=== PATIENT | female | born 1950 | race Caucasian/White ===

== ENCOUNTER 2016-11-26 02:07 | Emergency (ER) | payer MEDICARE ==
[~2016-11-26] VITALS: Ht 167.6 cm; Wt 89.5 kg
[~2016-11-26 02:07] MED LIST: ALPR0.254 PO; CALC1CAP19 PO; CELE200C PO; CHOL200025 PO; CYAN250010 PO; FLUT15.88 NS; GABA-502 PO; INFL100V IV; NAPR220C11 PO; POTA8CAP10 PO; PRAS25CA PO; SERT20OR6 PO; SOMA350 PO
[2016-11-26 02:19] VITALS: BP 125/84; PULSE 74; RESP 16; O2SAT 97
--- NOTE | 2016-11-26 02:28 | ED.REPORT ---
HPI-Abd Pain F Under 40 Date of Service Nov 26, 2016 ED Provider: Norris Moody MD Patient is a 66 year old female with a history of ankylosing spondylitis on Remicade infusions and prior gastric bypass who presents to the ED with diffuse abdominal pain for the past 3 days, worse in severity tonight. She describes the pain as a constant pressure, which waxes and wanes, with sharper stabbing pains. She denies fever, chills, nausea, vomiting, diarrhea, or constipation. The patient was previously told by her GI physician, Dr. Eduardo, that she has gallstones and would need her gallbladder out someday. Patient denies any other abdominal surgeries or a history of diverticulitis. Nursing Notes Stated Complaint: ABDOMINAL PAIN Chief Complaint: Female Abdominal Pain Nursing Notes Reviewed: Yes Allergies: Coded Allergies: Sulfa (Sulfonamide Antibiotics) (Verified Allergy, Intermediate, Nausea, Vomiting, 11/26/16) alendronate sodium (Verified Allergy, Unknown, 11/26/16) oxycodone (Verified Adverse Reaction, Intermediate, UPSET STOMACH, 11/26/16 ) Scheduled Calcium Carb/D3/Mag Aa Chelate (Coral Calcium Capsule) 1 Each Capsule 1 EACH PO DAILY Celecoxib (Celebrex) 200 Mg Capsule 200 MG PO DAILY Cholecalciferol (Vitamin D3) (Vitamin D3) 2,000 Unit Tablet 2,000 UNIT PO DAILY Cyanocobalamin (Vitamin B-12) (Vitamin B12) 2,500 Mcg Tablet 2,500 MCG PO DAILY Gabapentin (Gabapentin) 300 Mg Capsule 300 MG PO BID Infliximab (Remicade) 10 Mg/Ml Sdv 100 MG IV Q8WKS Naproxen Sodium (Aleve) 220 Mg Capsule 220 MG PO DAILY Potassium Chloride (Potassium Chloride) 8 Meq Capsule.er 2 MEQ PO DAILY TAKE WITH FOOD Prasterone (Dhea) (Dhea) 25 Mg Capsule 25 MG PO DAILY Sertraline HCl (Sertraline) 20 Mg/1 Ml Oral.conc 50 MG PO DAILY Scheduled PRN Alprazolam (Alprazolam) 0.25 Mg Tablet 0.25 MG PO TID PRN PRN For Anxiety Carisoprodol (Carisoprodol) 350 Mg Tablet 350 MG PO QID PRN PRN For Restlessness Miscellaneous Medications Fluticasone Propionate (Fluticasone Propionate) 50 Mcg/Actuation [place].susp 15.8 ML NS General Time Seen by MD: 02:26 Chief Complaint Abdominal pain Hx Obtained From: Patient Arrived By: Walk-in Sudden in Onset?: No Onset Occurred: 3 days ago Symptom Duration: Since onset Location: : Diffuse Quality: Cramping, Painful, Stabbing Severity: Current: Moderate Severity: Maximum: Severe Recent Healthcare: No recent doctor visit, No recent hospitalization Similar Sx Previous: No Past Medical History Past Medical History ankylosing spondylitis, Remicade infusions arthritis cholelithiasis Past Surgical History gastric bypass - 20 years ago in [place] left knee surgery Smoking History Former Smoker Social History Other Social History: Good social support, , Local resident Ambulatory Status Independent Review of Systems Constitutional: Denies: Chills, Fever GI: Reports: Abdominal pain, Denies: Constipation, Diarrhea, Nausea, Vomiting Complete sys rev & neg: except as marked. Physical Exam Initial Vital Signs Vital Signs (First) Date Time Temp Pulse Resp B/P Pulse Ox O2 Delivery O2 Flow Rate FiO2 11/26/16 02:19 36.2 74 16 125/84 97 Room Air Initial VS: Reviewed Head / Eyes: Atraumatic, Normocephalic, PERRL ENT: Conjunctiva normal, No scleral icterus Neck: Supple Extremities: Vascular intact, Neuro intact Skin: Warm, Dry, No cyanosis Neurologic: Alert, Oriented, Nonfocal Psychiatric: Mood/affect normal, Behavior normal, Normal thought content General/Constitutional: Awake, Alert Respiratory / Chest: Breath sounds NL, Breath sounds = bilat, No respiratory distress, No rales, No rhonchi, No wheezing Cardiovascular: Heart rate NL, Regular rhythm, Heart sounds NL Abdomen: Soft mild tenderness at the midfield of the abdomen. Back: Atraumatic, Painless range of motion Interpretation & Diagnostics Lab Results Interpretation Result Diagram: 11/26/16 0300 11/26/16 0300 Test 11/26/16 03:00 11/26/16 04:10 White Blood Count 6.7th/mm3 (3.8-10.1) Red Blood Count 4.23mil/mm3 (3.90-5.20) Hemoglobin 12.6g/dL (12.0-15.6) Hematocrit 40.1% (35.0-46.0) Mean Corpuscular Volume 94.8fL (81-100) Mean Corpuscular Hemoglobin 29.8pg (27.0-35.0) Mean Corpuscular Hemoglobin Concent 31.4% (32.0-37.0) Red Cell Distribution Width 12.4% (12.3-15.4) Platelet Count 178bil/L (150-400) Neutrophils (%) (Auto) 54.4% (40-74) Lymphocytes (%) (Auto) 35.0% (14-46) Monocytes (%) (Auto) 8.9% (4-12) Eosinophils (%) (Auto) 1.5% (0-5) Basophils (%) (Auto) 0.1% (0-3) Prothrombin Time 10.9sec (8.1-12.5) Prothromb Time International Ratio 1.02ratio Sodium Level 142mEq/L (134-144) Potassium Level 4.1mEq/L (3.5-5.2) Chloride Level 111mEq/L (97-108) Carbon Dioxide Level 20mmol/L (18-29) Blood Urea Nitrogen 21mg/dL (8-27) Creatinine 1.10mg/dL (0.57-1.00) Estimat Glomerular Filtration Rate 71mL/min (>59) Glucose Level 92mg/dL (60-99) Lactic Acid Level 0.6mmol/L (0.4-2.0) Calcium Level 8.9mg/dL (8.5-10.1) Magnesium Level 2.0mg/dL (1.6-2.6) Total Bilirubin 0.4mg/dL (0.0-1.2) Aspartate Amino Transf (AST/SGOT) 16U/L (0-50) Alanine Aminotransferase (ALT/SGPT) 10U/L (0-32) Alkaline Phosphatase 60U/L (25-165) Total Protein 6.6g/dL (6.4-8.4) Albumin 4.0g/dL (3.4-5.0) Lipase 56U/L (13-60) Urine Color Yellow (YELLOW) Urine Appearance Clear (CLEAR,HAZY) Urine pH 5.5 (5.0-8.0) Urine Specific [place] 1.018 (1.003-1.035) Urine Protein Negativemg/dL (NEG,TRACE) Urine Glucose (UA) Negativemg/dL (NEGATIVE) Urine Ketones Negativemg/dL (NEGATIVE) Urine Occult Blood Negative (NEGATIVE) Urine Nitrite Negative (NEGATIVE) Urine Bilirubin Negative (NEGATIVE) Urine Urobilinogen Normalmg/dL (NORMAL) Urine Leukocyte Esterase Negative (NEGATIVE) Urine RBC 0-2/hpf (0-2) Urine WBC 0-5/hpf (0-5) Urine Epithelial Cells Moderate/hpf (NONE-MOD) Urine Crystals None seen (NONE SEEN) Urine Bacteria None/hpf (NONE-FEW) Urine Hyaline Casts None/lpf (NONE) Urine Granular Casts None seen (NONE SEEN) Urine Waxy Casts None seen (NONE SEEN) Urine Red Blood Cell Casts None seen (NONE SEEN) Urine White Blood Cell Casts None seen (NONE SEEN) Urine Mucus Present (None Seen) Urine Trichomonas None seen (NONE SEEN) Urine Yeast None (NONE SEEN) Urinalysis Comment Urine Culture Reflexed Not indicated ECG Interpretation Time: 04:02 Interpreted by: ED physician Normal ECG Interpretation: Normal ECG w/ rate of... (62), No acute ischemic changes CT Abd / Pelvis Interpretation CONCLUSION: Abnormal position of the cecum with some changes in the vascular pattern of the right lower quadrant and mild on the cecal lumen. A complete volvulus of the cecum is not present. I believe this represents a partial volvulus of the cecum. There is no evidence of obstruction or ischemic bowel. Findings should be correlated with the patient's symptoms. There is generalized dilatation of colon which may represent an element of ileus or constipation. Alternatively, the degress of cecal volvulus may intermittently change, becoming more severe and more symptomatic. Cholelithiasis without evidence of cholecystitis. Radiologist: Dmitri Abebe MD 11/26/2016 - 4:53:10 AM [facility] Interpretation / Wet Read by: Interpret - Radiologist Re-Eval/Medical Decision Med Decision/Clinical Course Med Decision/Clinical Course: 66-year-old presents with waxing and waning abdominal pain, intermittent severe, improved to have a possible sigmoid volvulus resolving at present. She has incidental gallstones. These were none prior. She is referred to surgical service for further evaluation and management, as this likely will require repair to avoid an ischemic episode. She is referred to Dr. Emerson in the office, and prompted return for any abdominal pain and does not resolve over an hour or so Source of Hx: Old records Re-Evaluation/Progress : Time of Eval: 05:31 Patient Status: Condition improved Re-Evaluation/Progress Note: Patient states that her pain is improved but still present. Spoke with the patient and her about the results of her CT scan. Labs were normal. There is concern for partial volvulus of the cecum. This is not emergent but will need a surgical consult this week. Patient understands and agrees with the plan to be discharged home. Discharge instructions and follow-up discussed. All questions were addressed. Return to the ED warnings given. Counseled Regarding: Diagnosis, Lab results, Need for follow-up, When/why to return to ED Discharge & Departure Primary Impression: Cecal volvulus Disposition: Home Discharge Condition All VS Reviewed: Yes Condition: Stable Patient Instructions: Acute Abdominal Pain (ED) Additional Instructions: You appear to have had a cecal volvulus. It appears to have resolved, but is likely to recur. It can be dangerous, and cut off the blood supply to the large bowel, causing necrosis and perforation. It needs the attention of a surgeon. Call the surgical office this morning for follow-up appointment. Call your doctor's office this morning also. Return if you have pain that does not go away over an hour or so. You have gallstones incidentally, but they are probably not the cause of your pain today. Referrals: Edwar Emerson MD, David M DO Scribe Attestation Portions of this note were transcribed by Luna Glez. I, Dr. Moody personally performed the history, physical exam and medical decision-making; I reviewed and confirmed the accuracy of the information in the transcribed note. Signed by: Alo Nesbitt, 11/26/2016 0544 copies to: Edwar Emerson MD; Damon Ramsey Christopher W MD Nov 26, 2016 02:28 Luna Glez Nov 26, 2016 02:58
[2016-11-26] MEDS ORDERED: 0.9% Sodium Chloride 1,000 ML IV ONE (03:04)
[2016-11-26] MEDS ORDERED: Pantoprazole 4 mg/mL 10 mL Inj IVPUSH ONE (03:05)
[2016-11-26] MEDS ORDERED: HYDROmorphone 0.5 mg/0.5 mL iSecure Syringe IVPUSH PRN (03:05)
[2016-11-26] MEDS ORDERED: Iohexol 300 mg/mL 30 mL Inj PO ONE (03:05)
[2016-11-26 03:12] LABS: BASOPHILS % (AUTO) 0.1 % (0-3); EOSINOPHILS % (AUTO) 1.5 % (0-5); MONOCYTES % (AUTO) 8.9 % (4-12); Mean Corpuscular Hemoglobin 29.8 pg (27.0-35.0); Mean Corpuscular Volume 94.8 fL (81-100); NEUTROPHILS % (AUTO) 54.4 % (40-74); Platelet Count 178 bil/L (150-400)
[2016-11-26 03:29] LABS: INR 1.02 ratio
[2016-11-26 04:21] LABS: APPEARANCE,URINE CLEAR (CLEAR,HAZY); COLOR,URINE YELLOW (YELLOW); OCCULT BLOOD,URINE NEGATIVE (NEGATIVE); PH,URINE 5.5 (5.0-8.0); UROBILINOGEN,URINE NORMAL (NORMAL)
[2016-11-26 05:57] VITALS: BP 123/77; PULSE 56; RESP 16; O2SAT 99
--- NOTE | 2016-11-26 08:35 | DRSVH ---
PROCEDURE: CT ABDOMEN AND PELVIS WITH CONTRAST ([id number]) INDICATIONS: abd pain, post sheri, TECHNIQUE: After the administration of intravenous contrast, 5 mm thick sections acquired from the diaphragm to the symphysis. 5 mm coronal and sagittal reformats were acquired. For radiation dose reduction, the following was used: automated exposure control, adjustment of mA and/or kV according to patient siz e. COMPARISON: None. FINDINGS: Image quality: Excellent. ABDOMEN: Lung bases: Lung bases are clear. Heart size is normal. Small hiatal hernia. Solid organs: Liver and spleen are normal in size and enhancement. Gallbladder contains gallstones. No gallbladder wall thickening or pericholecystic fluid. Biliary system is non dilated. Pancreas e nhances normally. No adrenal nodules. Kidneys demonstrate normal size and enhancement, without hydr onephrosis. Peritoneum and bowel: There is gastric bypass. There is a large amount of stool in colon. Cecum is s lightly high in position Appendix is normal. Bowel loops demonstrate normal wall thickness and calibe r. No free fluid or air. Nodes and vessels: No retroperitoneal or mesenteric adenopathy by size criteria. Aorta and inferior vena cava are normal in size. Mild atherosclerosis. Miscellaneous: No ventral hernias. PELVIS: Genitourinary: Bladder wall thickness is normal. Miscellaneous: No inguinal hernias or adenopathy. Bones: No suspicious bony lesions. No vertebral body compression fractures. IMPRESSION: 1. Large amount of stool in colon. 2. Normal appendix. 3. Cecum is high in position. No evidence for cecal volvulus. 4. Cholelithiasis. No evidence for acute cholecystitis. 5. Gastric bypass. 6. Small hiatal hernia. No significant discrepancy with the shift supervisor radiology preliminary report. Dictated by: Sheeba Ram M.D. on 11/26/2016 at 8:22 Approved by: Sheeba Ram M.D. on 11/26/2016 at 8:33
== END 2016-11-26 05:57 | disposition home or self-care (01) ==
LOC: SED 02:07
DX: K56.2 Volvulus (principal); Z87.19 Personal history of other diseases of the digestive system; Z87.39 Personal history of other diseases of the musculoskeletal system and connective tissue; Z98.84 Bariatric surgery status; Z79.899 Other long term (current) drug therapy; Z87.891 Personal history of nicotine dependence; Z88.2 Allergy status to sulfonamides; Z88.5 Allergy status to narcotic agent; Z88.8 Allergy status to other drugs, medicaments and biological substances
CPT/HCPCS: 36415; 74177; 80053; 81000; 83605; 83690; 83735; 85025; 85610; 93005; 96374; 96375; 99285; G0463; J1170; J7030; Q9967

== ENCOUNTER 2017-01-05 16:21 | Emergency (ER) | payer MEDICARE ==
[~2017-01-05] VITALS: Ht 167.6 cm; Wt 90.9 kg
[2017-01-05 16:33] VITALS: BP 109/74; PULSE 80; RESP 20; O2SAT 94
[2017-01-05 18:14] LABS: EOSINOPHILS % (AUTO) 0.2 % (0-5); MONOCYTES % (AUTO) 17.3 % (4-12); Mean Corpuscular Hemoglobin 29.9 pg (27.0-35.0); Mean Corpuscular Volume 93.3 fL (81-100); NEUTROPHILS % (AUTO) 37.3 % (40-74); Platelet Count 132 bil/L (150-400)
--- NOTE | 2017-01-05 18:26 | ED.REPORT ---
HPI-General Illness Date of Service Jan 05, 2017 ED Provider: Deejay Melgar MD Pt is a 66 y/o female w/ a hx of ankylosing spondylosis on Remicade presenting to the ED with multiple medical complaints onset 1 day ago. She c/o clear productive cough, neck pain, nausea, dental pain, sinus pain, headache, pleuritic chest pain, sore throat, rhinorrhea, fever (100.6 F), diarrhea, lightheadedness, dizziness. Pt denies vomiting. The pt was here 1 month ago for a cecal volvulus and her abdominal pain has improved since she was discharged. Nursing Notes Stated Complaint: DIZZY/SORE THROAT/COUGH Chief Complaint: General Complaint Nursing Notes Reviewed: Yes Allergies: Coded Allergies: Sulfa (Sulfonamide Antibiotics) (Verified Allergy, Intermediate, Nausea, Vomiting, 11/26/16) alendronate sodium (Verified Allergy, Unknown, 11/26/16) oxycodone (Verified Adverse Reaction, Intermediate, UPSET STOMACH, 11/26/16 ) Scheduled Calcium Carb/D3/Mag Aa Chelate (Coral Calcium Capsule) 1 Each Capsule 1 EACH PO DAILY Celecoxib (Celebrex) 200 Mg Capsule 200 MG PO DAILY Cholecalciferol (Vitamin D3) (Vitamin D3) 2,000 Unit Tablet 2,000 UNIT PO DAILY Cyanocobalamin (Vitamin B-12) (Vitamin B12) 2,500 Mcg Tablet 2,500 MCG PO DAILY Gabapentin (Gabapentin) 300 Mg Capsule 300 MG PO BID Infliximab (Remicade) 10 Mg/Ml Sdv 100 MG IV Q8WKS Naproxen Sodium (Aleve) 220 Mg Capsule 220 MG PO DAILY Potassium Chloride (Potassium Chloride) 8 Meq Capsule.er 2 MEQ PO DAILY TAKE WITH FOOD Prasterone (Dhea) (Dhea) 25 Mg Capsule 25 MG PO DAILY Promethazine DM Syrup (Promethazine DM Syrup) 118 Ml Syrup 5 ML PO HS Sertraline HCl (Sertraline) 20 Mg/1 Ml Oral.conc 50 MG PO DAILY Scheduled PRN Alprazolam (Alprazolam) 0.25 Mg Tablet 0.25 MG PO TID PRN PRN For Anxiety Carisoprodol (Carisoprodol) 350 Mg Tablet 350 MG PO QID PRN PRN For Restlessness Miscellaneous Medications Fluticasone Propionate (Fluticasone Propionate) 50 Mcg/Actuation [place].susp 15.8 ML NS General Time Seen by MD: 18:24 Chief Complaint Multip medical complaints Hx Obtained From: Patient Arrived By: Walk-in Sudden in Onset?: No Onset Occurred: 1 day ago Symptom Duration: Since onset Location: : Face: Head: Neck Quality: Painful Severity: Current: Mild Severity: Maximum: Mild Past Medical History Past Medical History ankylosing spondylitis, Remicade infusions arthritis cholelithiasis Past Surgical History gastric bypass - 20 years ago in [place] left knee surgery Smoking History Former Smoker Social History Other Social History: Good social support, , Local resident Ambulatory Status Independent Review of Systems Full Review of Systems Constitutional: Reports: Chills, Fatigue, Fever, Malaise Respiratory: Reports: Pleuritic pain, Prod cough, clear, Denies: Prod cough, bloody, Prod cough, brown, Shortness of breath Cardiovascular: Denies: Chest pain, Dyspnea on exertion, Edema GI: Reports: Diarrhea, Nausea, Denies: Abdominal pain, Bloody/tarry stool, Hematochezia, Vomiting Musculoskeletal: Reports: Myalgia, Neck pain Neurologic: Reports: Dizziness, Headache, Lightheaded, Denies: Focal weakness, Numbness Complete sys rev & neg: except as marked. Physical Exam Vital Signs Vital Signs Date Time Temp Pulse Resp B/P Pulse Ox O2 Delivery O2 Flow Rate FiO2 01/05/17 19:44 36.9 65 18 100/54 95 Room Air 01/05/17 16:33 36.6 80 20 109/74 94 Room Air Initial VS: Reviewed, Vital signs abnormal Head / Eyes: Atraumatic, Normocephalic, PERRL Neck: Supple, Non-tender, Full range of motion Respiratory: Breath sounds normal, Clear to auscultation, No respiratory distress Abdomen / GI: Soft, Non-tender, No guarding, No rebound, No distention Skin: Warm, Dry, No cyanosis Neurologic: Alert, Oriented, Nonfocal Psychiatric: Mood/affect normal, Behavior normal, Normal thought content General/Constitutional: Awake, Alert, No acute distress, Cooperative, Not toxic appearing Appearance / Presentation: Positive: Ill appearing/not toxic ENT: Atraumatic, Airway patent, Mucous membranes moist, Pharynx NL Sinus: Positive: Tender maxillary L, Tender maxillary R Cardiovascular: Heart rate NL, Regular rhythm, Heart sounds NL, No gallop, No murmurs, No rubs, Cap refill not delayed, Peripheral circulation NL Trace bilateral lower extremity edema Interpretation & Diagnostics Lab Results Interpretation Result Diagram: 01/05/17 1755 01/05/17 1755 Test 01/05/17 17:55 White Blood Count 4.2th/mm3 (3.8-10.1) Red Blood Count 4.79mil/mm3 (3.90-5.20) Hemoglobin 14.3g/dL (12.0-15.6) Hematocrit 44.7% (35.0-46.0) Mean Corpuscular Volume 93.3fL (81-100) Mean Corpuscular Hemoglobin 29.9pg (27.0-35.0) Mean Corpuscular Hemoglobin Concent 32.0% (32.0-37.0) Red Cell Distribution Width 12.5% (12.3-15.4) Platelet Count 132bil/L (150-400) Neutrophils (%) (Auto) 37.3% (40-74) Lymphocytes (%) (Auto) 44.2% (14-46) Monocytes (%) (Auto) 17.3% (4-12) Eosinophils (%) (Auto) 0.2% (0-5) Basophils (%) (Auto) 1.0% (0-3) Sodium Level 136mEq/L (134-144) Potassium Level 4.8mEq/L (3.5-5.2) Chloride Level 99mEq/L (97-108) Carbon Dioxide Level 23mmol/L (18-29) Blood Urea Nitrogen 13mg/dL (8-27) Creatinine 1.26mg/dL (0.57-1.00) Estimat Glomerular Filtration Rate 61mL/min (>59) Glucose Level 111mg/dL (60-99) Calcium Level 9.7mg/dL (8.5-10.1) Magnesium Level 1.9mg/dL (1.6-2.6) Total Bilirubin 0.6mg/dL (0.0-1.2) Aspartate Amino Transf (AST/SGOT) 25U/L (0-50) Alanine Aminotransferase (ALT/SGPT) 12U/L (0-32) Alkaline Phosphatase 71U/L (25-165) Total Protein 7.2g/dL (6.4-8.4) Albumin 4.3g/dL (3.4-5.0) Lipase 49U/L (13-60) Hold [place] Top Tube Received (Received) X-Ray Chest Interpretation Chest Xray Interpretation: IMPRESSION: No acute disease Dictated by: Clinton Rosado M.D. on 01/05/2017 at 19:29 Approved by: Clinton Rosado M.D. on 01/05/2017 at 19:29 View: Portable, 1 view Interpretation / Wet Read by: Interpret - Radiologist Re-Eval/Medical Decision Med Decision/Clinical Course 66-year-old female history of ankylosing spondylitis previously on Remicade not currently presenting with cough and congestion and sore throat. No fevers. Vital signs stable. Labs are stable. X-ray no pneumonia. Influenza negative. Patient likely with viral URI. Discharged home with cough suppressant and return precautions. Time of Eval: 19:44 Re-Evaluation/Progress Note: Pt rechecked. Informed pt of plan for treatment. Pt understands and agrees with plan for treatment. F/U instructions and RTER warnings given. All questions addressed. Counseled Regarding: Diagnosis, Lab results, Need for follow-up, When/why to return to ED Discharge & Departure Primary Impression: Viral URI Disposition: Home Discharge Condition All VS Reviewed: Yes Condition: Stable Patient Instructions: Upper Respiratory Infection (ED) Additional Instructions: Your symptoms are consistent with a viral upper respiratory infection. Your labs and chest x-ray was normal. The flu swab was negative. Make sure to stay well hydrated. Use Flonase as needed for nasal congestion. Return to the emergency department for worsening trouble breathing, persistent vomiting, persistent high fever, severe pain, or for other concerning symptoms. Follow-up with your primar care doctor early next week. Referrals: Damon Ramsey DO (PCP) Alo Attestation Portions of this note were transcribed by Tyshawn De Jesus. I, Dr. Melgar, personally performed the history, physical exam and medical decision-making; I reviewed and confirmed the accuracy of the information in the transcribed note. Signed by Alo Green, 01/05/17 - 1900 copies to: Damon Ramsey Ben M MD Jan 05, 2017 18:26 TYSHAWN DE JESUS Jan 05, 2017 18:33
[2017-01-05 18:35] LABS: Magnesium 1.9 mg/dL (1.6-2.6)
[2017-01-05] MEDS ORDERED: Ketorolac 30 mg/mL 2 mL Inj IM ONE (18:35)
--- NOTE | 2017-01-05 19:31 | DRSVH ---
PROCEDURE: X-RAY CHEST ONE VIEW, PORTABLE ([id number]) INDICATIONS: cough fever TECHNIQUE: One view of the chest was acquired. COMPARISON: [facility], , CHEST 2VW, 01/15/2012, 10:35. FINDINGS: Surgical changes and devices: None. Lungs and pleura: No pleural effusions or pneumothorax. Lungs are clear. Mediastinum: Mediastinal contours appear normal. Heart size is normal. Bones and chest wall: No suspicious bony lesions. Overlying soft tissues appear unremarkable. IMPRESSION: No acute disease Dictated by: Clinton Rosado M.D. on 01/05/2017 at 19:29 Approved by: Clinton Rosado M.D. on 01/05/2017 at 19:29
[2017-01-05 19:44] VITALS: BP 100/54; PULSE 65; RESP 18; O2SAT 95
[2017-01-05] MEDS ORDERED: D-ME118S8 PO (19:45)
== END 2017-01-05 19:55 | disposition home or self-care (01) ==
LOC: SED 16:21
DX: J06.9 Acute upper respiratory infection, unspecified (principal); K08.89 Other specified disorders of teeth and supporting structures; M54.2 Cervicalgia; R50.9 Fever, unspecified; R07.81 Pleurodynia; R42 Dizziness and giddiness; R19.7 Diarrhea, unspecified; Z87.891 Personal history of nicotine dependence; Z88.2 Allergy status to sulfonamides; Z88.5 Allergy status to narcotic agent; Z88.8 Allergy status to other drugs, medicaments and biological substances
CPT/HCPCS: 36415; 71010; 80053; 83690; 83735; 85025; 87804; 96372; 99284; J1885

== ENCOUNTER 2017-01-30 04:53 | Emergency (ER) | payer MEDICARE ==
[~2017-01-30] VITALS: Ht 167.6 cm; Wt 86.4 kg
[~2017-01-30 04:53] MED LIST changes: +D-ME118S8 PO
[2017-01-30 04:57] VITALS: BP_SYST 134; BP_SYST 91; BP_DIAS 91; PULSE 68; RESP 16; O2SAT 96
[2017-01-30] MEDS ORDERED: 0.9% Sodium Chloride 1,000 ML IV ONE (05:20)
[2017-01-30] MEDS ORDERED: Ondansetron 2 mg/mL 2 mL Inj IVPUSH ONE (05:20)
[2017-01-30] MEDS ORDERED: Pantoprazole 4 mg/mL 10 mL Inj IVPUSH ONE (05:20)
--- NOTE | 2017-01-30 05:20 | ED.REPORT ---
HPI-Abd Pain F 40 and Over Date of Service Jan 30, 2017 ED Provider: Norris Moody MD Nursing Notes Stated Complaint: STOMACH PAIN Chief Complaint: Female Abdominal Pain Allergies: Coded Allergies: Sulfa (Sulfonamide Antibiotics) (Verified Allergy, Intermediate, Nausea, Vomiting, 11/26/16) alendronate sodium (Verified Allergy, Unknown, 11/26/16) oxycodone (Verified Adverse Reaction, Intermediate, UPSET STOMACH, 11/26/16 ) Scheduled Calcium Carb/D3/Mag Aa Chelate (Coral Calcium Capsule) 1 Each Capsule 1 EACH PO DAILY Celecoxib (Celebrex) 200 Mg Capsule 200 MG PO DAILY Cholecalciferol (Vitamin D3) (Vitamin D3) 2,000 Unit Tablet 2,000 UNIT PO DAILY Cyanocobalamin (Vitamin B-12) (Vitamin B12) 2,500 Mcg Tablet 2,500 MCG PO DAILY Gabapentin (Gabapentin) 300 Mg Capsule 300 MG PO BID Infliximab (Remicade) 10 Mg/Ml Sdv 100 MG IV Q8WKS Naproxen Sodium (Aleve) 220 Mg Capsule 220 MG PO DAILY Potassium Chloride (Potassium Chloride) 8 Meq Capsule.er 2 MEQ PO DAILY TAKE WITH FOOD Prasterone (Dhea) (Dhea) 25 Mg Capsule 25 MG PO DAILY Promethazine DM Syrup (Promethazine DM Syrup) 118 Ml Syrup 5 ML PO HS Sertraline HCl (Sertraline) 20 Mg/1 Ml Oral.conc 50 MG PO DAILY Scheduled PRN Alprazolam (Alprazolam) 0.25 Mg Tablet 0.25 MG PO TID PRN PRN For Anxiety Carisoprodol (Carisoprodol) 350 Mg Tablet 350 MG PO QID PRN PRN For Restlessness Miscellaneous Medications Fluticasone Propionate (Fluticasone Propionate) 50 Mcg/Actuation [place].susp 15.8 ML NS General Time Seen by MD: 05:18 Past Medical History Past Medical History ankylosing spondylitis, Remicade infusions arthritis cholelithiasis Past Surgical History gastric bypass - 20 years ago in [place] left knee surgery Smoking History Former Smoker Social History Other Social History: Good social support, , Local resident Ambulatory Status Independent Physical Exam Vital Signs Interpretation & Diagnostics Lab Results Interpretation Test 01/30/17 05:45 White Blood Count 4.8th/mm3 (3.8-10.1) Red Blood Count 4.06mil/mm3 (3.90-5.20) Hemoglobin 12.0g/dL (12.0-15.6) Hematocrit 38.3% (35.0-46.0) Mean Corpuscular Volume 94.3fL (81-100) Mean Corpuscular Hemoglobin 29.6pg (27.0-35.0) Mean Corpuscular Hemoglobin Concent 31.3% (32.0-37.0) Red Cell Distribution Width 12.5% (12.3-15.4) Platelet Count 147bil/L (150-400) Neutrophils (%) (Auto) 44.2% (40-74) Lymphocytes (%) (Auto) 48.1% (14-46) Monocytes (%) (Auto) 5.8% (4-12) Eosinophils (%) (Auto) 1.7% (0-5) Basophils (%) (Auto) 0.2% (0-3) Prothrombin Time 11.2sec (8.1-12.5) Prothromb Time International Ratio 1.05ratio Urine Color Yellow (YELLOW) Urine Appearance Clear (CLEAR,HAZY) Urine pH 5.5 (5.0-8.0) Urine Specific [place] 1.025 (1.003-1.035) Urine Protein Negativemg/dL (NEG,TRACE) Urine Glucose (UA) Negativemg/dL (NEGATIVE) Urine Ketones Negativemg/dL (NEGATIVE) Urine Occult Blood Negative (NEGATIVE) Urine Nitrite Negative (NEGATIVE) Urine Bilirubin Negative (NEGATIVE) Urine Urobilinogen Normalmg/dL (NORMAL) Urine Leukocyte Esterase Negative (NEGATIVE) Urine RBC 0-2/hpf (0-2) Urine WBC 0-5/hpf (0-5) Urine Epithelial Cells Moderate/hpf (NONE-MOD) Urine Crystals None seen (NONE SEEN) Urine Bacteria Few/hpf (NONE-FEW) Urine Hyaline Casts None/lpf (NONE) Urine Granular Casts None seen (NONE SEEN) Urine Waxy Casts None seen (NONE SEEN) Urine Red Blood Cell Casts None seen (NONE SEEN) Urine White Blood Cell Casts None seen (NONE SEEN) Urine Mucus None seen (None Seen) Urine Trichomonas None seen (NONE SEEN) Urine Yeast None (NONE SEEN) Urinalysis Comment None Urine Culture Reflexed Not indicated Sodium Level 138mEq/L (134-144) Potassium Level 4.2mEq/L (3.5-5.2) Chloride Level 103mEq/L (97-108) Carbon Dioxide Level 22mmol/L (18-29) Blood Urea Nitrogen 17mg/dL (8-27) Creatinine 1.14mg/dL (0.57-1.00) Estimat Glomerular Filtration Rate 68mL/min (>59) Glucose Level 88mg/dL (60-99) Lactic Acid Level 0.7mmol/L (0.4-2.0) Calcium Level 9.0mg/dL (8.5-10.1) Magnesium Level 2.0mg/dL (1.6-2.6) Total Bilirubin 0.5mg/dL (0.0-1.2) Aspartate Amino Transf (AST/SGOT) 49U/L (0-50) Alanine Aminotransferase (ALT/SGPT) 32U/L (0-32) Alkaline Phosphatase 53U/L (25-165) Total Protein 6.4g/dL (6.4-8.4) Albumin 3.9g/dL (3.4-5.0) Lipase 40U/L (13-60) Discharge & Departure Referrals: Damno Ramsey DO (PCP) Norris Moody MD Jan 30, 2017 05:20 Norris Moody MD Jan 30, 2017 05:20
[2017-01-30 06:00] LABS: BASOPHILS % (AUTO) 0.2 % (0-3); EOSINOPHILS % (AUTO) 1.7 % (0-5); MONOCYTES % (AUTO) 5.8 % (4-12); Mean Corpuscular Hemoglobin 29.6 pg (27.0-35.0); Mean Corpuscular Volume 94.3 fL (81-100); NEUTROPHILS % (AUTO) 44.2 % (40-74); Platelet Count 147 bil/L (150-400)
--- NOTE | 2017-01-30 06:01 | ED.REPORT ---
HPI-Abd Pain F 40 and Over Date of Service Jan 30, 2017 ED Provider: Prasad Louise MD The patient is a 66 year old female w/ a hx of fibromyalgia, ankylosing spondylitis on Remicade infusions and prior gastric bypass who presents to the ED due to RLQ abdominal pain for the past 3 hours. The pain woke her up from sleep. She experienced a similar pain 3 months ago, and had a CT scan done on . Dr. Edwar Emerson was concerned that the picture may have been consistent with cecal volvulus and recommended follow up if she developed recurrent symptoms. She denies vomiting and has had regular bowel movements since the pain began. PCP is Dr. Damon Ramsey and her GI physician is Dr. Eduardo. Nursing Notes Stated Complaint: STOMACH PAIN Chief Complaint: Female Abdominal Pain Nursing Notes Reviewed: Yes Allergies: Coded Allergies: Sulfa (Sulfonamide Antibiotics) (Verified Allergy, Intermediate, Nausea, Vomiting, 11/26/16) alendronate sodium (Verified Allergy, Unknown, 11/26/16) oxycodone (Verified Adverse Reaction, Intermediate, UPSET STOMACH, 11/26/16 ) Scheduled Calcium Carb/D3/Mag Aa Chelate (Coral Calcium Capsule) 1 Each Capsule 1 EACH PO DAILY Celecoxib (Celebrex) 200 Mg Capsule 200 MG PO DAILY Cholecalciferol (Vitamin D3) (Vitamin D3) 2,000 Unit Tablet 2,000 UNIT PO DAILY Cyanocobalamin (Vitamin B-12) (Vitamin B12) 2,500 Mcg Tablet 2,500 MCG PO DAILY Gabapentin (Gabapentin) 300 Mg Capsule 300 MG PO BID Infliximab (Remicade) 10 Mg/Ml Sdv 100 MG IV Q8WKS Naproxen Sodium (Aleve) 220 Mg Capsule 220 MG PO DAILY Potassium Chloride (Potassium Chloride) 8 Meq Capsule.er 2 MEQ PO DAILY TAKE WITH FOOD Prasterone (Dhea) (Dhea) 25 Mg Capsule 25 MG PO DAILY Promethazine DM Syrup (Promethazine DM Syrup) 118 Ml Syrup 5 ML PO HS Sertraline HCl (Sertraline) 20 Mg/1 Ml Oral.conc 50 MG PO DAILY Scheduled PRN Alprazolam (Alprazolam) 0.25 Mg Tablet 0.25 MG PO TID PRN PRN For Anxiety Carisoprodol (Carisoprodol) 350 Mg Tablet 350 MG PO QID PRN PRN For Restlessness Miscellaneous Medications Fluticasone Propionate (Fluticasone Propionate) 50 Mcg/Actuation [place].susp 15.8 ML NS General Time Seen by MD: 05:59 Chief Complaint Abdominal pain Hx Obtained From: Patient Arrived By: Walk-in Sudden in Onset?: Yes Onset Occurred: 1 - 4 hours ago Symptom Duration: Since onset Location: : RLQ Quality: Painful Radiation: : Does not radiate Severity: Current: Mild Recent Healthcare: No recent hospitalization Similar Sx Previous: Yes Past Medical History Past Medical History ankylosing spondylitis, Remicade infusions arthritis cholelithiasis Past Surgical History gastric bypass - 20 years ago in [place] left knee surgery Smoking History Former Smoker Social History Other Social History: Good social support, , Local resident Ambulatory Status Independent Review of Systems GI: Reports: Abdominal pain, Denies: Vomiting Complete sys rev & neg: except as marked. Physical Exam Vital Signs Vital Signs (First) Date Time Temp Pulse Resp B/P Pulse Ox O2 Delivery O2 Flow Rate FiO2 01/30/17 04:57 36.4 68 16 134/91 96 Room Air Initial VS: Reviewed Head / Eyes: Atraumatic, Normocephalic, PERRL ENT: Mucous membranes moist Extremities: Vascular intact, No swelling, No tenderness Skin: Warm, Dry Neurologic: Alert, Oriented Psychiatric: Mood/affect normal, Behavior normal General/Constitutional: Awake, Alert, Cooperative, Not toxic appearing Respiratory / Chest: Atraumatic, Breath sounds NL, Breath sounds = bilat Cardiovascular: Heart rate NL, Regular rhythm, Heart sounds NL Abdomen: Atraumatic, Soft, Non-tender, No guarding, No rebound, BS normoactive Back: Atraumatic, Inspection NL Interpretation & Diagnostics Lab Results Interpretation Result Diagram: 01/30/17 0545 01/30/17 0545 Test 01/30/17 05:45 White Blood Count 4.8th/mm3 (3.8-10.1) Red Blood Count 4.06mil/mm3 (3.90-5.20) Hemoglobin 12.0g/dL (12.0-15.6) Hematocrit 38.3% (35.0-46.0) Mean Corpuscular Volume 94.3fL (81-100) Mean Corpuscular Hemoglobin 29.6pg (27.0-35.0) Mean Corpuscular Hemoglobin Concent 31.3% (32.0-37.0) Red Cell Distribution Width 12.5% (12.3-15.4) Platelet Count 147bil/L (150-400) Neutrophils (%) (Auto) 44.2% (40-74) Lymphocytes (%) (Auto) 48.1% (14-46) Monocytes (%) (Auto) 5.8% (4-12) Eosinophils (%) (Auto) 1.7% (0-5) Basophils (%) (Auto) 0.2% (0-3) Prothrombin Time 11.2sec (8.1-12.5) Prothromb Time International Ratio 1.05ratio Urine Color Yellow (YELLOW) Urine Appearance Clear (CLEAR,HAZY) Urine pH 5.5 (5.0-8.0) Urine Specific [place] 1.025 (1.003-1.035) Urine Protein Negativemg/dL (NEG,TRACE) Urine Glucose (UA) Negativemg/dL (NEGATIVE) Urine Ketones Negativemg/dL (NEGATIVE) Urine Occult Blood Negative (NEGATIVE) Urine Nitrite Negative (NEGATIVE) Urine Bilirubin Negative (NEGATIVE) Urine Urobilinogen Normalmg/dL (NORMAL) Urine Leukocyte Esterase Negative (NEGATIVE) Urine RBC 0-2/hpf (0-2) Urine WBC 0-5/hpf (0-5) Urine Epithelial Cells Moderate/hpf (NONE-MOD) Urine Crystals None seen (NONE SEEN) Urine Bacteria Few/hpf (NONE-FEW) Urine Hyaline Casts None/lpf (NONE) Urine Granular Casts None seen (NONE SEEN) Urine Waxy Casts None seen (NONE SEEN) Urine Red Blood Cell Casts None seen (NONE SEEN) Urine White Blood Cell Casts None seen (NONE SEEN) Urine Mucus None seen (None Seen) Urine Trichomonas None seen (NONE SEEN) Urine Yeast None (NONE SEEN) Urinalysis Comment None Urine Culture Reflexed Not indicated Sodium Level 138mEq/L (134-144) Potassium Level 4.2mEq/L (3.5-5.2) Chloride Level 103mEq/L (97-108) Carbon Dioxide Level 22mmol/L (18-29) Blood Urea Nitrogen 17mg/dL (8-27) Creatinine 1.14mg/dL (0.57-1.00) Estimat Glomerular Filtration Rate 68mL/min (>59) Glucose Level 88mg/dL (60-99) Lactic Acid Level 0.7mmol/L (0.4-2.0) Calcium Level 9.0mg/dL (8.5-10.1) Magnesium Level 2.0mg/dL (1.6-2.6) Total Bilirubin 0.5mg/dL (0.0-1.2) Aspartate Amino Transf (AST/SGOT) 49U/L (0-50) Alanine Aminotransferase (ALT/SGPT) 32U/L (0-32) Alkaline Phosphatase 53U/L (25-165) Total Protein 6.4g/dL (6.4-8.4) Albumin 3.9g/dL (3.4-5.0) Lipase 40U/L (13-60) Lab Results Interpretation: U-dip: Normal ECG Interpretation Time: 05:49 Interpreted by: ED physician Normal ECG Interpretation: Normal ECG w/ rate of... (54) Re-Eval/Medical Decision Med Decision/Clinical Course Review Dr. paula note from November 16 and he clearly describes a suspicion that volvulus may have been the cause of her pain. He did recommend close follow-up if she were to experience recurrent symptoms. Those symptoms she experienced this morning have largely resolved with modest intervention today. She has a soft abdomen and normal laboratory values and normal vital signs. I do not believe that CT scanning is indicated at this time. I recommend follow-up within an hour of recurrent symptoms to be sure that this is not a volvulus. I think that she was afraid that a volvulus might be immediately dangerous in the sense of seconds or minutes but I was able to reassure her that, though dangerous, she would certainly have minutes or a few hours to come in and have it assessed for possible surgical intervention if recurrent and severe. Re-Evaluation/Progress : Time of Eval: 07:02 Patient Status: Pain improved Re-Evaluation/Progress Note: Pt rechecked. Pain is improved with medication. Informed pt of diagnosis and plan of treatment. F/U and RTER warnings given. Pt understands and agrees with plan. 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 Continue to take Ibuprofen and Tylenol as directed for pain. Follow up with your primary care physician as needed. Return to the Emergency Department for any new or worsening symptoms. I hope you feel better soon! Referrals: Damon Ramsey DO (PCP) Aaronibsmiley Attestation Portion of this note were transcribed by Destiny Castillo. I, Dr. Louise, personally performed the history, physical exam, and medical decision-making: I reviewed and confirmed the accuracy for the information in the transcribed note. Signed by: shalom Sultana, 02/19/17 0800 copies to: Damon Ramsey Kirk H MD Jan 30, 2017 06:01 Destiny Castillo Jan 30, 2017 06:09
[2017-01-30 06:09] LABS: APPEARANCE,URINE CLEAR (CLEAR,HAZY); COLOR,URINE YELLOW (YELLOW); OCCULT BLOOD,URINE NEGATIVE (NEGATIVE); PH,URINE 5.5 (5.0-8.0); UROBILINOGEN,URINE NORMAL (NORMAL)
[2017-01-30 06:23] LABS: INR 1.05 ratio
[2017-01-30 07:19] VITALS: BP 120/66; PULSE 61; RESP 16; O2SAT 95
== END 2017-01-30 07:20 | disposition home or self-care (01) ==
LOC: SED 04:53
DX: R10.31 Right lower quadrant pain (principal); Z87.891 Personal history of nicotine dependence; Z88.2 Allergy status to sulfonamides; Z88.5 Allergy status to narcotic agent; Z88.8 Allergy status to other drugs, medicaments and biological substances
CPT/HCPCS: 36415; 80053; 81000; 83605; 83690; 83735; 85025; 85610; 93005; 96361; 96374; 96375; 99285; J1885; J2405; J7030